=== PATIENT | male | born 1985 | race Caucasian/White ===

== ENCOUNTER 2017-07-26 10:04 | Emergency (ER) | payer SELFPAY ==
[2017-07-26] MEDS ORDERED: Lisinopril 20 MG TAB ONE (10:35)
== END 2017-07-26 10:47 | disposition home or self-care (01) ==
LOC: BURERS 10:04
DX: S16.1XXA Strain of muscle, fascia and tendon at neck level, initial encounter (principal); I10 Essential (primary) hypertension; F32.9 Major depressive disorder, single episode, unspecified; F17.290 Nicotine dependence, other tobacco product, uncomplicated; F17.220 Nicotine dependence, chewing tobacco, uncomplicated; Z91.14 Patient's other noncompliance with medication regimen; X58.XXXA Exposure to other specified factors, initial encounter
CPT/HCPCS: 93005

== ENCOUNTER 2024-02-09 16:28 | Emergency (ER) | payer OTHER, SELFPAY ==
[2024-02-09] MEDS ORDERED: Lidocaine 1% (PF) 30 ML VIAL ONE (16:39)
[2024-02-09] MEDS ORDERED: Acetaminophen 500 MG TAB ONE (16:58)
[2024-02-09] MEDS ORDERED: Boostrix 0.5 ML (Tdap) VIAL (>/=7 yrs of age) ONE (16:59)
[2024-02-09] MEDS ORDERED: Bacitracin 1 PK ONE (17:52)
== END 2024-02-09 18:02 | disposition home or self-care (01) ==
LOC: BURERS 16:28
DX: S61.412A Laceration without foreign body of left hand, initial encounter (principal); I10 Essential (primary) hypertension; F17.290 Nicotine dependence, other tobacco product, uncomplicated; Z23 Encounter for immunization
CPT/HCPCS: 12004; 90471; 90715